=== PATIENT | female | born 1980 | race Caucasian/White ===

== ENCOUNTER 2019-06-27 11:31 | Outpatient (CLI) | payer OTHER | END 2019-06-27 11:33 | disposition home or self-care (01) | LOC: RX STUDY 11:31 | DX: R10.2 Pelvic and perineal pain (principal) ==

== ENCOUNTER 2019-09-24 19:38 | Emergency (ER) | payer OTHER ==
[~2019-09-24] VITALS: Ht 157.5 cm; Wt 49.9 kg
[2019-09-24] MEDS ORDERED: ENDOMETRIN100 MG (19:42)
== END 2019-09-24 22:17 | disposition home or self-care (01) ==
LOC: ER 19:38
DX: O46.8X1 Other antepartum hemorrhage, first trimester (principal)

== ENCOUNTER 2020-04-29 12:18 | Inpatient (IN) | payer OTHER ==
[~2020-04-29] VITALS: Ht 160 cm; Wt 55.3 kg
[~2020-04-29 12:18] MED LIST: ENDOMETRIN100 MG
[2020-05-14] MEDS ORDERED: PRESERVISION A1 EAC3 PO (05:10)
[2020-05-14] MEDS ORDERED: OSTERA TABLET1 EACH PO (05:11)
[2020-05-14] MEDS ORDERED: DHA100 MG PO (05:13)
[2020-05-14] MEDS ORDERED: CALCIUM500 M1 PO (05:13)
== END 2020-05-16 12:19 | disposition home or self-care (01) | DRG 768 ==
LOC: LDR 05-14 03:54 → OB/GYN 05-14 03:54
PROVIDERS: ADMIT Obstetrics & Gynecology; ATTEND Obstetrics & Gynecology
PROC: 10E0XZZ Delivery of Products of Conception, External Approach (ICD-10-PCS; principal; 2020-05-14)
PROC: 0DQR0ZZ Repair Anal Sphincter, Open Approach (ICD-10-PCS; 2020-05-14)
PROC: 4A1HXFZ Monitoring of Products of Conception, Cardiac Rhythm, External Approach (ICD-10-PCS; 2020-05-14)
PROC: 3E033VJ Introduction of Other Hormone into Peripheral Vein, Percutaneous Approach (ICD-10-PCS; 2020-05-14)
PROC: 0W8NXZZ Division of Female Perineum, External Approach (ICD-10-PCS; 2020-05-14)
DX: O70.20 Third degree perineal laceration during delivery, unspecified (principal); Z37.0 Single live birth; Z3A.37 37 weeks gestation of pregnancy; Z20.828 Contact with and (suspected) exposure to other viral communicable diseases

== ENCOUNTER 2022-01-26 11:10 | Emergency (ER) | payer OTHER ==
[~2022-01-26] VITALS: Ht 152.4 cm; Wt 55.3 kg
[~2022-01-26 11:10] MED LIST changes: +CALCIUM500 M1 PO; +DHA100 MG PO; +OSTERA TABLET1 EACH PO; +PRESERVISION A1 EAC3 PO
== END 2022-01-26 13:06 | disposition home or self-care (01) ==
LOC: ER 11:10
DX: O26.892 Other specified pregnancy related conditions, second trimester (principal); Z3A.22 22 weeks gestation of pregnancy; R00.2 Palpitations; Z91.013 Allergy to seafood

== ENCOUNTER 2022-05-28 23:21 | Inpatient (IN) | payer OTHER ==
[~2022-05-28] VITALS: Ht 160 cm; Wt 61.7 kg
== END 2022-05-30 12:52 | disposition home or self-care (01) | DRG 807 ==
LOC: OB/GYN 23:21 → LDR 23:21 → OB/GYN 05-29 01:37
PROVIDERS: ADMIT Obstetrics & Gynecology; ATTEND Obstetrics & Gynecology
PROC: 10E0XZZ Delivery of Products of Conception, External Approach (ICD-10-PCS; principal; 2022-05-28)
PROC: 0W8NXZZ Division of Female Perineum, External Approach (ICD-10-PCS; 2022-05-28)
PROC: 4A1HXCZ Monitoring of Products of Conception, Cardiac Rate, External Approach (ICD-10-PCS; 2022-05-28)
DX: O80 Encounter for full-term uncomplicated delivery (principal); Z37.0 Single live birth; Z3A.39 39 weeks gestation of pregnancy; Z20.822 Contact with and (suspected) exposure to COVID-19